=== PATIENT | female | born 1945 | race Caucasian/White ===

== ENCOUNTER → 2017-05-18 | Outpatient (REF) | payer OTHER | LOC: M SFHCWAGY 11:18 | PROVIDERS: ATTEND Nurse Practitioner Women's Health | DX: Z12.31 Encounter for screening mammogram for malignant neoplasm of breast (principal); Z12.4 Encounter for screening for malignant neoplasm of cervix; R87.610 Atypical squamous cells of undetermined significance on cytologic smear of cervix (ASC-US); Z12.12 Encounter for screening for malignant neoplasm of rectum; Z78.0 Asymptomatic menopausal state; Z80.3 Family history of malignant neoplasm of breast; Z80.41 Family history of malignant neoplasm of ovary | CPT/HCPCS: 82270; 87624; G0101; G0123; G0202 ==

== ENCOUNTER → 2017-05-18 | Outpatient (CLI) | payer OTHER ==
--- NOTE | 2017-05-18 12:25 | REPMRS ---
Patient History The patient states she had a clinical breast exam in 05/24 Patient is postmenopausal. Family history of ovarian cancer in sister at age 50 or over, breast cancer in mother at age 75, and prostate cancer in brother at age 50 or over. Digital Woman Screen Mammo: May 18, 2017 - Exam #: [id number] Bilateral CC and MLO view(s) were taken. Technologist: Graciela Meraz, Technologist Prior study comparison: April 03, 2016, digital woman screen mammo performed at [facility]. April 01, 2015, digital woman screen mammo performed at [facility]. FINDINGS: There are scattered fibroglandular densities. There has been no change in the appearance of the mammogram from the prior studies. There is a mild amount of residual fibroglandular tissue which is fairly symmetric. There is no interval development of dominant mass, architectural distortion, or clustered microcalcification suggestive of malignancy. ASSESSMENT: BI-RADS/ACR category 1 mammogram. Negative. Recommendation Routine screening mammogram in 1 year (for women over age 40). This mammogram was interpreted with the aid of an FDA-approved computer-aided dectection system. Electronically Signed By: Cal Lovell MD 05/18/17 [id number]
== END ==
LOC: M WHC 10:25
PROVIDERS: ATTEND Nurse Practitioner Women's Health
DX: Z12.31 Encounter for screening mammogram for malignant neoplasm of breast (principal); Z78.0 Asymptomatic menopausal state; Z80.3 Family history of malignant neoplasm of breast; Z80.41 Family history of malignant neoplasm of ovary

== ENCOUNTER → 2018-08-20 | Outpatient (CLI) | payer MEDICARE, OTHER | LOC: M WHC 13:14 | DX: Z12.31 Encounter for screening mammogram for malignant neoplasm of breast (principal); Z78.0 Asymptomatic menopausal state; Z80.3 Family history of malignant neoplasm of breast; Z80.42 Family history of malignant neoplasm of prostate; Z80.41 Family history of malignant neoplasm of ovary | CPT/HCPCS: 77067 ==

== ENCOUNTER 2019-04-28 11:50 | Inpatient (IN) | payer MEDICARE ==
--- NOTE | 2019-04-21 15:59 | HPE ---
DATE OF ANTICIPATED ADMISSION: 04/28/2019 CHIEF COMPLAINT: Left knee pain and stiffness. HISTORY: Patient is a pleasant 73-year-old female with progressively worsening left knee pain and stiffness. She has failed to improve with conservative measures. She continues to have symptoms with weightbearing activities and activities of daily living. She consented for an elective left total knee arthroplasty with Dr. Dr. Alegria for her continued symptoms. Medical optimization pending with BARBARA Fernandez and was not available for review today. CURRENT MEDICATIONS: - fish oil 500 mg daily - daily multivitamin - citalopram 10 mg daily - metoprolol 50 mg daily ALLERGIES: CODEINE, IVP DYE. CHRONIC MEDICAL CONDITIONS: Anxiety, hypertension. PAST SURGICAL HISTORY: Tubal ligation, dilatation and curettage (D C), exploratory laparotomy. SOCIAL HISTORY: Patient is a former smoker and occasionally consumes alcohol. REVIEW OF SYSTEMS: Patient denies fevers, chills, nausea, vomiting, or diarrhea. She denies chest pain, shortness of breath, lightheadedness, dizziness or headaches. She denies abdominal pain or recent upper respiratory or urinary tract infection symptoms. She continues to have left knee pain with weightbearing activities and activities of daily living. PHYSICAL EXAMINATION: GENERAL: Well nourished, well developed female in no apparent distress. She is alert and oriented and cooperative. Mood and affect are appropriate. VITAL SIGNS: Blood pressure 132/60, respirations 14, heart rate 82, height 61 inches, weight 190.8 pounds, temperature 97 degrees. NECK: Supple without lymphadenopathy. HEART: Regular rate and rhythm. LUNGS: Clear to auscultation bilaterally. ABDOMEN: Soft, nontender to palpation. Bowel sounds are present. MUSCULOSKELETAL: Left knee exhibits no gross abnormalities. Her skin is intact. She does have tenderness to palpation along the medial joint line and posterior knee. Patient can extend knee fully and flex to about 95 degrees. Left lower extremity strength is 5 out of 5. No hip irritability elicited with range of motion testing. Patient's calf was soft, nontender to palpation with no palpable cords noted. She is neurovascularly intact distally. LABORATORY DATA: Chest x-ray - no acute abnormalities. Left knee x-ray - notable for end-stage degenerative changes. Prothrombin time 10.4, INR 1.06. Complete blood count - WBC 6.1, RBC is decreased at 3.67, hemoglobin decreased at 11.2, hematocrit decreased at 33.9, erythrocyte sedimentation rate 14, platelets 188. Comprehensive metabolic profile - sodium 137, potassium 4.2, chloride 102, carbon dioxide 27.7, GAP 7.3, BUN 14, creatinine 0.95, GFR greater than 60, fasting glucose 97, calcium 8.6, total bilirubin 0.3, AST 16, ALT 21, alkaline phosphatase 59, total protein 6.5, albumin 3.9. IMPRESSION: Left knee degenerative arthritis with x-rays notable for end-stage degenerative changes. PLAN: Patient has consented for and elective left total knee arthroplasty with Dr. Dr. Alegria for continue symptoms. Medical optimization pending with RNP. OLAYINKA Fernandez
[~2019-04-28] VITALS: Ht 156.2 cm; Wt 87.1 kg
[2019-04-28] MEDS: OCUVITE 1 TAB PO SCH (09:00)
[~2019-04-28 11:50] MED LIST: ACETAMINOPHEN 500 MG TAB PO ONE; BRIM0.2S13 OD; CALC500T68 PO; CELE10TA PO; LR 1,000 ML IV ONE; METO1TAB7 PO; MULTCAP PO; NAPR250T4 PO; OCUVCAP2 PO; OMEG12003 PO; OYST1TAB PO; PROBCAP14 PO; TYLE650T35 PO; ceFAZolin SOD 2 GM in IV 1 EA IV ONE; hemp oil PO
[2019-04-28 13:01] LABS: BLOOD UREA NITROGEN 11 MG/DL (7-18); CALCIUM LEVEL 9.4 MG/DL (8.8-10.2); CARBON DIOXIDE LEVEL 26 MEQ/L (21-32); CHLORIDE LEVEL 109 MEQ/L (98-107); CREATININE FOR GFR 0.87 MG/DL (0.55-1.30); GLOMERULAR FILTRATION RATE > 60.0 (>39); GLUCOSE, FASTING 107 MG/DL (70-100); POTASSIUM SERUM 3.9 MEQ/L (3.5-5.1); SODIUM LEVEL 143 MEQ/L (136-145)
[2019-04-28] MEDS ORDERED: MIDAZOLAM INJ 2 MG/2 ML VIAL (J2250) As Ordered ONE ×2 (13:40→14:00)
[2019-04-28] MEDS ORDERED: fentaNYL 100 MCG/2 ML INJECTION (J3010) As Ordered ONE (13:40)
[2019-04-28] MEDS ORDERED: propofoL 200 MG/20 ML VIAL As Ordered ONE (13:49)
[2019-04-28] MEDS ORDERED: LIDOCAINE 2% INJ 100 MG/5 ML SDV (FOR ANES.) As Ordered ONE (13:52)
[2019-04-28] MEDS ORDERED: ONDANSETRON 4MG/2ML VIAL (J2405) As Ordered ONE (13:54)
[2019-04-28] MEDS ORDERED: dexameTHASONE 4 MG/ML 1ML VIAL (J1100) As Ordered ONE (13:54)
[2019-04-28] MEDS ORDERED: BUPIVACAINE HCL 0.25% 30 ML VIAL As Ordered ONE (13:55)
[2019-04-28] MEDS ORDERED: EPINEPHrine INJ 1 MG/ML 1ML VIAL As Ordered ONE (15:14)
[2019-04-28] MEDS ORDERED: TRANEXAMIC ACID 100 MG/ML 10ML VIAL As Ordered ONE (15:14)
[2019-04-28] MEDS ORDERED: BUPIVACAINE LIPOSOME/PF 1.3% 20ML VIAL (13.3MG/ML)(EXPAREL)(C9290 PER1MG) As Ordered ONE (15:14)
[2019-04-28] MEDS ORDERED: ceFAZolin 1GM INJ (J0690 PER 500MG) As Ordered ONE (15:14)
[2019-04-28] MEDS ORDERED: BUPIVACAINE HCL 0.25% 10 ML VIAL As Ordered ONE ×3 (15:14→15:39)
[2019-04-28] MEDS ORDERED: fentaNYL 100 MCG/2 ML INJECTION (J3010) IV PRN (17:45)
[2019-04-28] MEDS ORDERED: HYDROMORPHONE HCL 0.5 MG/ 0.5 ML SYRINGE (J1170 PER 1) IV PRN ×2 (17:45)
[2019-04-28] MEDS ORDERED: oxyCODONE 5MG TAB PO PRN (17:45)
[2019-04-28] MEDS ORDERED: METOCLOPRAMIDE INJ 10MG/2ML VIAL (J2765) IV PRN (17:45)
[2019-04-28] MEDS ORDERED: LR 1,000 ML IV SCH ×2 (17:45→18:00)
[2019-04-28] MEDS ORDERED: PROMETHAZINE INJ 25 MG/ML VIAL (J2550) IV PRN (17:45)
[2019-04-28 18:00] VITALS: BP 158/69
[2019-04-28] MEDS ORDERED: ACETAMINOPHEN TAB 650MG DOSE (2X325MG) PO PRN (18:00)
[2019-04-28] MEDS ORDERED: FLEET ENEMA PR PRN (18:00)
--- NOTE | 2019-04-28 18:06 | CR.PDOC ---
General Date of Consultation: Apr 28, 2019 Consultation REASON FOR CONSULTATION/CHIEF COMPLAINT: Who presented to [facility] for an elective orthopedic procedure Medical management HISTORY OF PRESENT ILLNESS: Patient is a 73-year-old female with a past medical history of hypertension and anxiety who presented to the [facility] for an elective orthopedic procedure. Patient received outpatient clearance from her primary care provider Rhea Magana. Patient received lab work, chest x-ray and EKG. . She did not require cardiac clearance. Hospitalist services consult for medical management. Patient was seen postoperatively. Patient denies chest pain, shortness of breath, palpitations, nausea, vomiting, abdominal pain, constipation, diarrhea, discomfort with urination, fevers or chills. Patient reports that her appetite is fair and has denied any significant change in her weight. ALLERGIES: Please see below. HOME MEDICATIONS: Please see below. 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 ASSESSMENT/PLAN: Left knee pain - s/p total left knee arthroplasty (POD#0) - Presented to [facility] for an elective orthopedic procedure - Patient has received outpatient medical clearance from her primary care provider - Pain control, anticoagulation, & physical therapy at the direction of ortho pedic surgery HTN - BP moderately elevated - c/w Metoprolol with holding parameters Anxiety - c/w Citalopram DVT prophylaxis - Anticoagulation as per orthopedic surgery Vital Signs/I&O Vital Signs Date Time Temp Pulse Resp B/P (MAP) Pulse Ox O2 Delivery O2 Flow Rate FiO2 04/28/19 17:55 97.2 62 16 159/73 (101) 98 04/28/19 15:20 3 Laboratory Data Labs 24H Laboratory Tests 2 04/28/19 12:21: Anion Gap 8, Glomerular Filtration Rate > 60.0, Blood Urea Nitrogen 11, Creatinine 0.87, Sodium Level 143, Potassium Level 3.9, Chloride Level 109H, Carbon Dioxide Level 26, Calcium Level 9.4 CBC/BMP Laboratory Tests 04/28/19 12:21 Calcium Level 9.4 Allergies Coded Allergies: Contrast Media (Unverified Allergy, Intermediate, hives, 04/15/19) codeine (Verified Adverse Reaction, Mild, GI upset, 04/15/19) Home Medications Scheduled Acetaminophen (Tylenol Arthritis) 650 Mg Tablet.er, 1,300 MG PO BID, (Reported) Brimonidine Tartrate (Brimonidine Tartrate) 0.2% 5ML Drops, 1 DROP OD BID, #10 (Reported) C,E,Zinc,Copper 24/Om3/Lut/Brandyn (Ocuvite Adult 50 Plus Softgel) 1 Each Capsule, 1 CAP PO DAILY, (Reported) Calcium Carbonate (Calcium) 500 Mg Tab.chew, 500 MG PO QAM, (Reported) Calcium Carbonate (Calcium) 500 Mg Tablet, 1,000 MG PO QHS, (Reported) Citalopram Hydrobromide (Celexa) 10 Mg Tablet, 10 MG PO QHS, (Reported) Lactobacillus Acidophilus (Probiotic) 1 Each Capsule, 1 CAP PO DAILY, (Reported) Metoprolol Succinate (Metoprolol Succinate) 50 Mg Tab.er.24h, 50 MG PO QHS, (Reported) Multivitamin (Multivitamins) 1 Each Capsule, 2 CAP PO QHS, (Reported) Naproxen (Naproxen) 250 Mg Tablet, 250 MG PO BID, (Reported) [place]-3/Dha/Epa/Fish Oil (Fish Oil 1,200 mg Softgel) 1 Each Capsule.dr, 1 CAP PO DAILY, (Reported) [hemp oil] , PO DAILY, (Reported) NUVIA LEE MD Apr 28, 2019 18:06
[2019-04-28 18:30] VITALS: BP 153/69
[2019-04-28 20:13] VITALS: BP 117/66
[2019-04-28] MEDS ORDERED: LIDOCAINE 1% MDV 20ML VIAL ONE (20:22)
[2019-04-28] MEDS ORDERED: CitaloPRAM (CeleXA) 10 MG TABLET PO SCH (21:00)
[2019-04-28] MEDS ORDERED: METOPROLOL SUCC (TopROL XL) 50MG **XL** TAB PO SCH (21:00)
[2019-04-28] MEDS ORDERED: OYSTER SHELL CALCIUM 500 MG TAB PO SCH (21:00)
[2019-04-28 21:08] VITALS: BP 117/66
[2019-04-28] MEDS: BRIMONIDINE 0.15% OPHTH SOLN 5 ML OU SCH (21:08)
[2019-04-28 22:09] VITALS: BP 116/66
[2019-04-28] MEDS ORDERED: PERCOCET 5MG/325MG TAB PO PRN (22:30)
[2019-04-28] MEDS ORDERED: ONDANSETRON 4 MG TAB (S0181) PO PRN (22:30)
[2019-04-28] MEDS: ceFAZolin SOD 2 GM in IV 1 EA IV SCH (22:39)
[2019-04-28] MEDS: PERCOCET 5MG/325MG TAB PO PRN (22:40)
[2019-04-28 23:57] VITALS: BP 126/69
[2019-04-29 02:22] VITALS: BP 127/69
[2019-04-29] MEDS: PERCOCET 5MG/325MG TAB PO PRN ×2 (04:53→09:37)
[2019-04-29] MEDS: ceFAZolin SOD 2 GM in IV 1 EA IV SCH (05:24)
[2019-04-29 06:07] VITALS: BP 93/59
[2019-04-29 06:08] LABS: HEMATOCRIT 31.2 % (36.0-47.0); HEMOGLOBIN 10.3 g/dl (12.0-15.5); MEAN CORPUSCULAR HEMOGLOBIN 30.8 pg (27.0-33.0); MEAN CORPUSCULAR VOLUME 93.4 fl (80.0-96.0); PLATELET COUNT, AUTOMATED 171 10^3/uL (150-450); RED BLOOD COUNT 3.34 10^6/uL (4.00-5.40); WHITE BLOOD COUNT 11.5 10^3/uL (4.0-10.0)
[2019-04-29 06:26] LABS: BLOOD UREA NITROGEN 14 MG/DL (7-18); CALCIUM LEVEL 8.8 MG/DL (8.8-10.2); CARBON DIOXIDE LEVEL 26 MEQ/L (21-32); CHLORIDE LEVEL 106 MEQ/L (98-107); CREATININE FOR GFR 0.87 MG/DL (0.55-1.30); GLOMERULAR FILTRATION RATE > 60.0 (>39); GLUCOSE, FASTING 176 MG/DL (70-100); POTASSIUM SERUM 3.9 MEQ/L (3.5-5.1); SODIUM LEVEL 139 MEQ/L (136-145)
[2019-04-29] MEDS ORDERED: PERC5TAB12 PO ×2 (07:45→07:49)
[2019-04-29] MEDS ORDERED: XARE10TA PO (07:45)
[2019-04-29] MEDS ORDERED: LACTOBACILLUS ACIDOPHILUS CAP (BACID) PO SCH (09:00)
[2019-04-29] MEDS ORDERED: MOM 30ML SUSPENSION UDC PO SCH (09:00)
[2019-04-29] MEDS ORDERED: MULTIVITAMINS/MINERALS THERAP 1 TAB PO SCH (09:00)
[2019-04-29] MEDS ORDERED: MIRALAX *UNIT DOSE* 17GM PACKET PO SCH (09:00)
--- NOTE | 2019-04-29 09:03 | REP ---
REASON: Status post TKR. The femoral and tibial components of the TKR are well-sweated and well-approximated. The alignment is near anatomical. There is expected postoperative soft tissue swelling. There is an anterior skin staple line in place. IMPRESSION: Status post TKR. Electronically Signed by Oscar Wray DO 04/29/2019 10:03 A
[2019-04-29] MEDS: OCUVITE 1 TAB PO SCH (09:36)
[2019-04-29] MEDS: BRIMONIDINE 0.15% OPHTH SOLN 5 ML OU SCH (09:37)
--- NOTE | 2019-04-29 10:51 | IPNPDOC ---
Date Seen The patient was seen on 04/29/19. Progress Note SUBJECTIVE: c/o 5/10 pain at left knee. able to ambulate. no c/o sob, cp, pressure, dizziness. afebrile no chills no n/v/abd pain. tolerating her diet. passed physical therapy ok to dc home per ortho. OBJECTIVE: PHYSICAL EXAMINATION: - Vitals: pls ee below - General: Lying in bed, No acute distress, Speaking in full sentences, AAOx3 - HEENT: NC, AT, PERRLA, EOMI - CVS: RRR, +S1S2 - Lungs: Fair air entry bilaterally, No appreciable wheezing / rales / rhonchi - Abdomen: Soft, Non-distended, Non-tender - Extremities: post op left knee. - Neuro: No focal motor or sensory deficit - Skin: No visible rashes LABORATORY DATA: Please see below. ASSESSMENT/PLAN: Patient is a 73-year-old female with a past medical history of hypertension and anxiety who presented to the [facility] for an elective orthopedic procedure. Patient received outpatient clearance from her primary care provider Rhea Magana. Patient received lab work, chest x-ray and EKG. . She did not require cardiac clearance. Hospitalist services consult for medical management. Patient was seen postoperatively. Patient denies chest pain, shortness of breath, palpitations, nausea, vomiting, abdominal pain, constipation, diarrhea, discomfort with urination, fevers or chills. Patient reports that her appetite is fair and has denied any significant change in her weight. total left knee arthroplasty due to DJD - Presented to [facility] for an elective orthopedic procedure - Patient has received outpatient medical clearance from her primary care provider - Pain control, anticoagulation, & physical therapy at the direction of orthopedic surgery HTN - BP moderately elevated - c/w Metoprolol with holding parameters Anxiety - c/w Citalopram DVT prophylaxis - Anticoagulation as per orthopedic surgery disposition: dc home per primary team. VS, I&O, 24H, Fishbone Vital Signs/I&O Vital Signs Date Time Temp Pulse Resp B/P (MAP) Pulse Ox O2 Delivery O2 Flow Rate FiO2 04/29/19 09:37 18 04/29/19 06:07 97.1 68 93/59 (70) 98 04/28/19 15:20 3 I&O- Last 24 Hours up to 6 AM 04/29/19 06:00 Intake Total 2350 ml Output Total 400 ml Balance 1950 ml Laboratory Data 24H LABS Laboratory Tests 2 04/28/19 12:21: Anion Gap 8, Glomerular Filtration Rate > 60.0, Blood Urea Nitrogen 11, Creatinine 0.87, Sodium Level 143, Potassium Level 3.9, Chloride Level 109H, Carbon Dioxide Level 26, Calcium Level 9.4 04/29/19 05:20: Anion Gap 7L, Glomerular Filtration Rate > 60.0, Blood Urea Nitrogen 14, Creatinine 0.87, Sodium Level 139, Potassium Level 3.9, Chloride Level 106, Carbon Dioxide Level 26, Calcium Level 8.8, Nucleated Red Blood Cells % (auto) 0.0 CBC/BMP Laboratory Tests 04/28/19 12:21 Calcium Level 9.4 04/29/19 05:20 Calcium Level 8.8, Red Blood Count 3.34 L, Mean Corpuscular Volume 93.4, Mean Corpuscular Hemoglobin 30.8, Mean Corpuscular Hemoglobin Concent 33.0, Red Cell Distribution Width 12.2 CLIVE KHAN MD Apr 29, 2019 10:23
[2019-04-29] MEDS ORDERED: RIVAROXABAN 10 MG TAB (XARELTO) PO SCH (18:00)
--- NOTE | 2019-04-29 20:47 | RO ---
DATE OF PROCEDURE: 04/28/2019 PREPROCEDURE DIAGNOSIS: Left knee degenerative arthritis. POSTPROCEDURE DIAGNOSIS: Left knee degenerative arthritis. PROCEDURE: Left total knee arthroplasty using a size 5 cruciate-sacrificing femoral component with a size 4 tibial tray and an 8 mm rotating platform polyethylene insert and a 35 mm polyethylene button. The prosthesis was made by [employer]. It was an Attune knee. SURGEON: Dr. Wilian Alegria SHAREPOINT SPECIALIST: Ms. Barb Fuller ANESTHESIA: Left femoral nerve block with spinal. COMPLICATIONS: None. SPECIMENS: Joint surface. DESCRIPTION OF PROCEDURE: Antibiotics were given intravenously preoperatively and successful left femoral nerve block and then spinal anesthetic was induced. Tourniquet was placed on the left upper thigh and not inflated. The left lower extremity was carefully prepped and draped in the usual sterile fashion, leg elevated, tourniquet inflated after appropriate time out. A longitudinal incision was made for a medial parapatellar approach to the knee. Subperiosteal dissection was performed around the proximal, medial, and lateral tibial plateaus, patella was everted and the knee was flexed. Drill placed down the center of the femoral canal. Intramedullary stanislav inserted with the distal femoral cutting jig set at 9 mm resection level, 5 degree valgus cut for a left knee. Block was pinned into position. The distal femoral cut performed. The AP sizing jig was not able to be fit on the distal femur, thus I proceeded with a tibial cut. Extramedullary stanislav was utilized to estimate being parallel to the mechanical axis, referencing off the medial tibial condyle at 4 mm resection level. The block was pinned into position, appropriate slope applied and estimated. The block was pinned into position, then secondary check with the extramedullary stanislav confirmed we appeared to be parallel to the mechanical axis, thus a proximal tibial osteotomy was performed. At this point then, we reapplied the AP sizing jig, measured for a size 5, it was pinned in position with 3 degrees of external rotation. Then, the 4-in-1 block applied and the anterior, posterior chamfer cuts performed. We then placed the lamina food supervisor laterally and performed a completion medial meniscectomy and debridement of posteromedial osteophytes. We then placed the lamina food supervisor laterally and performed a completion lateral meniscectomy and debridement of posterolateral osteophytes. Spacer blocks were then applied. It was evident that she was quite tight medially. I did make sure that I did a full posteromedial release. Even with that, the posterior cruciate ligament (PCL) was quite tight, and I felt it best in this significantly varus knee to help with soft tissue balancing by performing a cruciate-sacrificing knee replacement. Thus, the osteotomy jig was applied for the notch on the femur. We pinned it in position and the notch osteotomy performed. We then placed the spacer blocks, and it was between a size 8 and 10; the 10 was a bit snug but 8 had a good symmetry to varus/valgus stress testing, both in flexion and in extension, and she had full extension. Thus, I felt that was likely the best polyethylene insert to use. At this point, however, we then exposed the proximal tibia, sized for a #4 tibial tray, reamed and broached and positioned, the trial femoral component was applied, and then we trialed the 8 and the 10 mm polyethylene insert and the 8 fit best. With the knee in full extension, we everted the patella and performed a patellar osteotomy, sized for a 35 patellar component, which was then placed and patellofemoral tracking was anatomic. We drilled the lug holes for the femur, then removed all the trial components, placed Exparel in the subperiosteal tissues around the distal femur and the proximal tibia. Then, Ms. Barb Fuller, mixed the cement on the back table as I prepared the bony surfaces for cementing with a copious amount of pulsatile lavage irrigant solution. Barbnata Fuller was also critical to the success of this difficult surgery by helping to manipulate the knee, helped to close the wound, helped to prepare the patient, helped to mix the cement, and helped with appropriate soft tissue retraction, helped to manipulate the knee such that I could perform the operation smoothly, efficiently, and safely. Once all the bony surfaces were thoroughly dried, we cemented the tibial tray, removed the excess cement, and then we cemented the femoral component, removed the excess cement, then placed the polyethylene and brought the knee into extension, everted the patella and cemented the patellar button, held it with a clamp with the knee in full extension, then removed all excess cement. We copiously pulsatile lavage irrigated out the knee joint as we were waiting for the cement to harden, then placed tranexamic acid in the knee and then began closing the arthrotomy with two #1 PDS sutures at the apex, one in the medial parapatellar area, then we closed the capsule with a double-arm #1 running Stratafix. I let the tourniquet down at this point, irrigating between layers, closed the deep subdermal tissues with interrupted #2-0 PDS sutures, skin was closed with isacc, covered by an Optifoam, dry sterile bulky dressing. The patient was then transferred to the recovery room in stable condition. There were no intraoperative complications.
--- NOTE | 2019-05-06 14:34 | DSES ---
DATE OF ADMISSION: 04/28/2019 DATE OF DISCHARGE: 04/29/2019 ADMISSION DIAGNOSIS: Osteoarthritis left knee. OTHER DIAGNOSES: Anxiety, hypertension. DISCHARGE DIAGNOSIS: Osteoarthritis left knee, status post total left knee arthroplasty. OPERATION PERFORMED: Left total knee arthroplasty. HISTORY: This is a 73-year-old female patient with progressively worsening left knee pain and stiffness who failed to improve with conservative management and was admitted for elective knee replacement on the left side. HOSPITAL COURSE: The patient was admitted on the day of surgery and underwent a total knee arthroplasty on the left, which was uneventful. She did well in the postoperative period and her hospital course was without complications. She was up with physical therapy per their protocol and pain was controlled. On the day of discharge, she was doing well, weightbearing as tolerated on the left lower extremity. She will use LO stockings for 30 days postoperatively and follow deep vein thrombosis (DVT) prophylaxis per protocol. She will followup in our office in 10-14 days for surgical followup. She will resume her preoperative medications, as well as oral pain medication for pain control. She was given instructions to include but not limited to wound monitoring and activity limitations. Please refer to the medical record for further details.
== END 2019-04-29 12:45 | disposition home or self-care (01) | DRG 470 ==
LOC: M OR 11:50 → M MS5PR 18:05
PROVIDERS: ADMIT Orthopaedic Surgery; ATTEND Orthopaedic Surgery
PROC: 0SRD069 Replacement of Left Knee Joint with Oxidized Zirconium on Polyethylene Synthetic Substitute, Cemented, Open Approach (ICD-10-PCS; principal; 2019-04-28 15:15)
DX: M17.12 Unilateral primary osteoarthritis, left knee (principal); F41.9 Anxiety disorder, unspecified; I10 Essential (primary) hypertension; Z88.5 Allergy status to narcotic agent; Z91.041 Radiographic dye allergy status; Z87.891 Personal history of nicotine dependence; Z79.899 Other long term (current) drug therapy

== ENCOUNTER → 2019-11-29 | Outpatient (CLI) | payer MEDICARE ==
[~2019-11-29] MED LIST changes: -ACETAMINOPHEN 500 MG TAB PO ONE; -LR 1,000 ML IV ONE; +PERC5TAB12 PO; +XARE10TA PO; -ceFAZolin SOD 2 GM in IV 1 EA IV ONE
--- NOTE | 2019-11-29 13:17 | REP ---
PA and lateral chest: Comparison is 09/28/2014. The lung dodson are clear. The cardiac size is normal. The yokasta, mediastinum, and skeletal structures are unremarkable. Impression: Negative PA and lateral chest. There is no interval change. The Electronically Signed by Cal Oreilly MD 11/29/2019 01:08 P
== END ==
LOC: M LRY 12:42
PROVIDERS: ATTEND Nurse Practitioner Family
DX: R05 Cough (principal)
CPT/HCPCS: 71046; 87804; 94640; G0463

== ENCOUNTER → 2020-02-13 | Outpatient (REF) | payer MEDICARE | LOC: M SFHCWAGY 18:06 | PROVIDERS: ATTEND Nurse Practitioner Women's Health | DX: Z12.4 Encounter for screening for malignant neoplasm of cervix (principal) ==

== ENCOUNTER → 2020-02-13 | Outpatient (CLI) | payer MEDICARE ==
[~2020-02-13] MED LIST changes: +ACET650T61 PO; +CITA10TA5 PO; +ECOT81TA5 PO; -TYLE650T35 PO
--- NOTE | 2020-02-16 07:32 | REPMRS ---
Patient History The patient states she had a clinical breast exam in February 2020. Family history of breast cancer at age 75 in mother, prostate cancer at age 50 or over in brother, ovarian cancer at age 50 or over in sister. No Hormone Replacement Therapy Digital Woman Screen Mammo: February 13, 2020 - Exam #: [id number] Bilateral CC and MLO view(s) were taken. Technologist: Katelynn Wolff Technologist Prior study comparison: August 20, 2018, bilateral digital woman screen mammo performed at [facility]. May 18, 2017, digital woman screen mammo performed at [facility]. April 03, 2016, digital woman screen mammo performed at [facility]. FINDINGS: There are scattered fibroglandular densities. The Volpara volumetric breast density category is:B. There has been no change in the appearance of the mammogram from the prior studies. There is a mild amount of scattered fibroglandular density which is fairly symmetric. There is no interval development of dominant mass, architectural distortion, or grouped microcalcification suggestive of malignancy. 3-D tomosynthesis shows no additional findings. Assessment: BI-RADS/ACR category 1 mammogram. Negative Mammogram. Recommendation Routine screening mammogram of both breasts in 1 year (for women over age 40). This patient's Lifetime Breast Cancer Risk is estimated at 4.2 %. This mammogram was interpreted with the aid of an FDA-approved computer-aided dectection system. Electronically Signed By: Placido Moore MD 02/13/20 [id number]
== END ==
LOC: M WHC 11:33
PROVIDERS: ATTEND Nurse Practitioner Women's Health
DX: Z01.419 Encounter for gynecological examination (general) (routine) without abnormal findings (principal); Z12.31 Encounter for screening mammogram for malignant neoplasm of breast; Z80.3 Family history of malignant neoplasm of breast; Z80.42 Family history of malignant neoplasm of prostate; Z80.41 Family history of malignant neoplasm of ovary
CPT/HCPCS: 77063; 77067; G0101; G0123

== ENCOUNTER → 2020-11-04 | Outpatient (CLI) | payer MEDICARE ==
[~2020-11-04] MED LIST changes: -ECOT81TA5 PO
== END ==
LOC: M LABSMTC 09:54
PROVIDERS: ATTEND Anesthesiology
DX: Z01.812 Encounter for preprocedural laboratory examination (principal); Z20.828 Contact with and (suspected) exposure to other viral communicable diseases

== ENCOUNTER 2020-11-08 10:00 | Inpatient (IN) | payer MEDICARE ==
--- NOTE | 2020-11-05 11:02 | HPE ---
HISTORY AND PHYSICAL DATE OF ANTICIPATED ADMISSION: 11/08/2020 CHIEF COMPLAINT: Right knee pain and stiffness. HISTORY: This is a 74-year-old female patient with progressively worsening right knee pain and stiffness who failed to improve with conservative management. She was elected for surgery for continued symptoms. She has pain with weightbearing activities and activities of daily living. X-rays notable for end-stage degenerative changes of the right knee. She has been consented by Dr. Scott for a right total knee arthroplasty. Medical optimization. through her primary, Dr. Krishnamurthy. ALLERGIES: Codeine and IVP dye. CURRENT MEDICATIONS: 1. Aleve 220 mg. She knows to discontinue that five days prior to surgery. 2. Ocuvite twice per day. 3. Citalopram 10 mg one tablet once per day. 4. Metoprolol 50 mg one tablet once per day. PAST MEDICAL HISTORY: 1. Symptomatic osteoarthritis of the right knee. 2. Hypertension. 3. Anxiety. 4. Glaucoma. 5. Hearing loss. PAST SURGICAL HISTORY: 1. Appendectomy. 2. D&C. 3. Right eye surgery. 4. Tubal ligation. 5. Knee replacement on the left side. FAMILY HISTORY: Hypertension, diabetes, COPD, heart disease, stroke, and cancer. SOCIAL HISTORY: She is a former smoker. She uses alcohol occasionally. REVIEW OF SYSTEMS: Denies chest pain, shortness of breath, or cough. Denies difficulty breathing. Denies abdominal pain. Denies nausea or vomiting. Notes persistent pain in her right knee and pain with weightbearing activities and activities of daily living. Denies exposure to COVID-19. Denies recent URI or UTI symptoms. PHYSICAL EXAMINATION: Exam today reveals an alert female patient that ambulates with a limping gait favoring her right side. She uses a cane for ambulation. The neck is supple without adenopathy or JVD. The lungs are clear to auscultation without rales or wheeze. Heart is regular rate and rhythm. Abdomen: Bowel sounds are present. Exam of the right knee reveals skin to be intact. No erythema, edema, or ecchymosis. Calf is soft and nontender to palpation. No irritability with hip range of motion. The knee is stable to varus and valgus stress. Irritability at the extremes of range of motion. No pain with passive range of motion of the great toe. She can sensate light touch. Height 61 inches, weight 190 pounds, temperature 96.8, blood pressure 128/82, pulse 67, respirations 14. LABORATORY DATA: WBC count 7.6, RBC count 4, hemoglobin 12.2, hematocrit 36.4. ESR 14. Sodium 140, potassium 4.0, BUN 13, creatinine 0.9, glucose 105. Chest x-ray: No acute cardiopulmonary process noted. EKG not present for review. IMPRESSION: Symptomatic osteoarthritis of the right knee. PLAN: We reviewed her pre and postoperative instructions. We went over the importance of being n.p.o. after midnight and no NSAIDs to include aspirin five days prior to surgery. We reviewed what aspirin is and what NSAIDs are. She understands to be on time. We went over the policy right now. There is no visitation policy at the [facility]. She understands to only take the medications as directed by her primary or anesthesia and if she is directed to take medications to only take it with a sip of water. She understands to be on time for appointment. She needs to call Sunday to find out what time she needs to be there on Sunday. All of her questions were answered. cc: Primary Care Physician
[2020-11-08] VITALS (7 sets, daily range): BP systolic 103–159; BP diastolic 63–90
[~2020-11-08] VITALS: Ht 154.9 cm; Wt 86.5 kg
[~2020-11-08 10:00] MED LIST changes: +ACETAMINOPHEN 500 MG TAB PO ONE; +LIDOCAINE 2% 100MG/5ML SDV (FOR ANES.) As Ordered ONE; +LR 1,000 ML IV ONE; +MIDAZOLAM INJ 2MG/2ML VIAL (J2250 PER 1MG) As Ordered ONE; +MIDAZOLAM INJ 2MG/2ML VIAL (J2250 PER 1MG) IV PRN; +ONDANSETRON 4MG/2ML VIAL As Ordered ONE; +ceFAZolin SOD 2 GM in IV 1 EA IV ONE; +fentaNYL 100 MCG/2 ML INJECTION (J3010) As Ordered ONE; +propofoL 200 MG/20 ML VIAL As Ordered ONE
--- OUTSIDE RECORDS SUMMARY | 2020-11-08 10:35 | CCD ---
Author Author [facility] Organization [facility] Address Unknown Phone Unavailable Care Team Providers Care Forge Heater Name Role Phone Petra Fontaine Unavailable Unavailable Petra Fontaine Unavailable Unavailable Petra Fontaine Unavailable Unavailable Petra Fontaine Unavailable Unavailable Petra Fontaine Unavailable Unavailable Petra Fontaine Unavailable Unavailable Petra Fontaine Unavailable Unavailable Petra Fontaine Unavailable Unavailable Petra Fontaine Unavailable Unavailable Petra Fontaine Unavailable Unavailable Petra Fontaine Unavailable Unavailable Petra Fontaine Unavailable Unavailable Petra Fontaine Unavailable Unavailable Fontaine, M Barratt PA Unavailable Unavailable Fontaine, M Barratt PA Unavailable Unavailable Fontaine, M Barratt PA Unavailable Unavailable Fontaine, M Barratt PA Unavailable Unavailable Fontaine, M Barratt PA Unavailable Unavailable Fontaine, M Barratt PA Unavailable Unavailable Fontaine, M Barratt PA Unavailable Unavailable Fontaine, M Barratt PA Unavailable Unavailable Fontaine, M Barratt PA Unavailable Unavailable Fontaine, M Barratt PA Unavailable Unavailable Fontaine, M Barratt PA Unavailable Unavailable Fontaine, M Barratt PA Unavailable Unavailable Fontaine, M Barratt PA Unavailable Unavailable Zhen, M Barratt PA Unavailable Unavailable Gladys Scott MD Unavailable Unavailable Gladys Scott MD Unavailable Unavailable Gladys Scott MD Unavailable Unavailable Gladys Scott MD Unavailable Unavailable Gladys Scott MD Unavailable Unavailable Gladys Scott MD Unavailable Unavailable Gladys Scott MD Unavailable Unavailable Glayds Scott MD Unavailable Unavailable Gladys Scott MD Unavailable Unavailable Gladys Scott MD Unavailable Unavailable Gladys Scott MD Unavailable Unavailable Gladys Scott MD Unavailable Unavailable Gladys Scott MD Unavailable Unavailable Gladys Scott MD Unavailable Unavailable Gladys Scott MD Unavailable Unavailable Gladys Scott MD Unavailable Unavailable Gladys Scott MD Unavailable Unavailable Gladys Scott MD Unavailable Unavailable Gladys Scott MD Unavailable Unavailable Gladys Scott MD Unavailable Unavailable Gladys Scott MD Unavailable Unavailable Gladys Scott MD Unavailable Unavailable Gladys Scott MD Unavailable Unavailable Gladys Scott MD Unavailable Unavailable Gladys Scott MD Unavailable Unavailable Gladys Scott MD Unavailable Unavailable Gladys Scott MD Unavailable Unavailable Gladys Scott MD Unavailable Unavailable Gladys Scott MD Unavailable Unavailable Gladys Scott MD Unavailable Unavailable Gladys Scott MD Unavailable Unavailable Gladys Scott MD Unavailable Unavailable Gladys Scott MD Unavailable Unavailable Gladys Scott MD Unavailable Unavailable Gladys Scott MD Unavailable Unavailable Gladys Scott MD Unavailable Unavailable Gladys Scott MD Unavailable Unavailable Gladys Scott MD Unavailable Unavailable Vaneenenaam, Gladys Chambers MD Unavailable Unavailable Vaneenenaam, Gladys Chambers MD Unavailable Unavailable Vaneenenaam, Gladys Chambers MD Unavailable Unavailable Vaneenenaam, Gladys Chambers MD Unavailable Unavailable Hadian, Lex Unavailable Unavailable Hadian, Lex Unavailable Unavailable Hadian, Lex Unavailable Unavailable Hadian, Lex Unavailable Unavailable Hadian, Lex Unavailable Unavailable Hadian, Lex Unavailable Unavailable Hadian, Lex Unavailable Unavailable Hadian, Lex Unavailable Unavailable Hadian, Lex Unavailable Unavailable Hadian, Lex Unavailable Unavailable Hadian, Lex Unavailable Unavailable Hadian, Lex Unavailable Unavailable Hadian, Lex Unavailable Unavailable Hadian, Lex Unavailable Unavailable Hadian, Lex Unavailable Unavailable Hadian, Lex Unavailable Unavailable Hadian, Lex Unavailable Unavailable Hadian, Lex Unavailable Unavailable Hadian, Lex Unavailable Unavailable Hadian, Lex Unavailable Unavailable Hadian, Lex Unavailable Unavailable Hadian, Lex Unavailable Unavailable Hadian, Lex Unavailable Unavailable Hadian, Lex Unavailable Unavailable Hadian, Lex Unavailable Unavailable Hadian, Lex Unavailable Unavailable Hadian, Lex Unavailable Unavailable Hadian, Lex Unavailable Unavailable Hadian, Lex Unavailable Unavailable Hadian, Lex Unavailable Unavailable Hadian, Lex Unavailable Unavailable Hadian, Lex Unavailable Unavailable Hadian, Lex Unavailable Unavailable Re-disclosure Warning The records that you are about to access may contain information from federally-assisted alcohol or drug abuse programs. If such information is present, then the following federally mandated warning applies: This information has been disclosed to you from records protected by federal confidentiality rules (42 CFR part 2). The federal rules prohibit you from making any further disclosure of this information unless further disclosure is expressly permitted by the written consent of the person to whom it pertains or as otherwise permitted by 42 CFR part 2. A general authorization for the release of medical or other information is NOT sufficient for this purpose. The Federal rules restrict any use of the information to criminally investigate or prosecute any alcohol or drug abuse patient.The records that you are about to access may contain highly sensitive health information, the redisclosure of which is protected by Article 27-F of the [facility] Public Health law. If you continue you may have access to information: Regarding HIV / AIDS; Provided by facilities licensed or operated by the [facility] Office of Mental Health; or Provided by the [facility] Office for People With Developmental Disabilities. If such information is present, then the following [facility] mandated warning applies: This information has been disclosed to you from confidential records which are protected by state law. State law prohibits you from making any further disclosure of this information without the specific written consent of the person to whom it pertains, or as otherwise permitted by law. Any unauthorized further disclosure in violation of state law may result in a fine or assisted sentence or both. A general authorization for the release of medical or other information is NOT sufficient authorization for further disc losure. Allergies and Adverse Reactions Type Description Substance Reaction Status Data Source(s ) ivp dye ivp dye ivp dye stomach pain Active eCW1 ([facility]) Codeine Sulfate Codeine Sulfate Codeine Sulfate stomache spasms Acti ve eCW1 ([facility]) Combigan Combigan Brimonidine tartrate 2 MG/ML / Timolol 5 MG/ML Ophthalmic Solution [Combigan] Angioedema Active eCW1 ([facility]) ivp dye ivp dye ivp dye stomach pain Active eCW1 ([facility]) Codeine Sulfate Codeine Sulfate Codeine Sulfate stomache spasms Acti ve eCW1 ([facility]) Family History Family Member Name Family Member Gender Family Member Status Date o f Status Description Data Source(s) Unknown Female Problem MEDENT ([facility]) Unknown Female Problem MEDENT ([facility]) Encounters Encounter Providers Location Date Indications Data Source(s ) Outpatient Attender: Gladys Scott MD [facility] 11/05/2020 04:12:00 PM EST - 11/05/2020 04:13:00 PM EST RIGHT KNEE OSTEOARTHRITIS M1711 [facility] RIGHT KNEE OSTEOARTHRITIS M1711 Patient discharged. Outpatient Attender: Gladys Scott MD [facility] 11/03/2020 11:41:00 AM EST - 11/03/2020 11:42:00 AM EST M1711 [facility] M1711 Patient discharged. Outpatient Attender: Lex Krishnamurthy [facility]PS[facility] 021 11:11:00 AM EST - 11/03/2020 11:12:00 AM EST [facility] Patient discharged. Outpatient Attender: Lex Krishnamurthy ED-[facility] 0 10:36:00 AM EDT - 07/08/2020 10:37:00 AM EDT I10 [facility] I10 Patient discharged. Outpatient Attender: Lex Krishnamurthy [facility]PS[facility]ORT-CPSGNIMD 020 09:43:00 AM EDT - 07/08/2020 09:44:00 AM EDT [facility] Patient discharged. Outpatient Attender: Gladys Scott MD Physical Therap y 06/22/2020 10:45:00 AM EDT MEDENT ([facility]) Outpatient Attender: Alex WHITEHEAD Physical Therapy 11:00:00 AM EDT MEDENT ([facility]) [facility] [address] [place] [address] 02/13/2020 12:00:00 AM EDT eCW1 ([facility]) [facility] [address] [place] [address] 12/26/2019 12:00:00 AM EDT eCW1 ([facility]) Outpatient 2019 03:09:00 PM EST [facility] Radiology Imaging [facility] [address] [place] [address] 11/29/2019 12:00:00 AM EST eCW1 ([facility]) Medications Medication Brand Name Start Date Product Form Dose Route Admi nistrative Instructions Pharmacy Instructions Status Indications Reaction Description Data Source(s) 10 mg 08/02/2020 12:00:00 AM EDT tablet 90 TAKE ONE TABLET BY MOUTH EVERY DAY TAKE ONE TABLET BY MOUTH EVERY DAY SOLD: 08/10/2020 [facility] 50 mg 07/12/2020 12:00:00 AM EDT tablet 90 TAKE ONE TABLET BY MOUTH EVERY DAY WITH FOOD TAKE ONE TABLET BY MOUTH EVERY DAY WITH FOOD SOLD: 07/13/2020 [facility] 50 mg 07/12/2020 12:00:00 AM EDT tablet 90 TAKE ONE TABLET BY MOUTH EVERY DAY WITH FOOD TAKE ONE TABLET BY MOUTH EVERY DAY WITH FOOD SOLD: 10/10/2020 [facility] Albuterol Sulfate HFA 108 (90 Base) MCG/ACT Albuterol Sulfate HFA 108 (90 Base) MCG/ACT 11/29/2019 12:00:00 AM EST suspended 2 puffs as needed eCW1 ([facility]) Flonase 50 MCG/ACT Flonase 50 MCG/ACT 11/29/2019 12:00:00 AM EST suspended 1 spray in each nostril eCW1 ([facility]) Sudafed 30 MG Sudafed 30 MG 11/29/2019 12:00:00 AM EST active 1 tablet as needed eCW1 ([facility]) Prednisone 20 MG Oral Tablet PredniSONE 20 MG PredniSONE 20 MG 11/29/2019 12:00:00 AM EST active 1 tablet eCW1 ([facility]) Flonase 50 MCG/ACT Flonase 50 MCG/ACT 11/29/2019 12:00:00 AM EST active 1 spray in each nostril eCW1 ([facility]) 12 HR dextromethorphan polistirex 6 MG/M L Extended Release Suspension [Delsym] Delsym 30 MG/5ML Delsym 30 MG/5ML 11/29/2019 12:00:00 AM EST suspended 10 ml as needed eCW1 ([facility]) Sudafed 30 MG Sudafed 30 MG 11/29/2019 12:00:00 AM EST suspended 1 tablet as needed eCW1 ([facility]) 12 HR dextromethorphan polistirex 6 MG/M L Extended Release Suspension [Delsym] Delsym 30 MG/5ML Delsym 30 MG/5ML 11/29/2019 12:00:00 AM EST active 10 ml as needed eCW1 ([facility]) Prednisone 20 MG Oral Tablet PredniSONE 20 MG PredniSONE 20 MG 11/29/2019 12:00:00 AM EST suspended 1 tab let eCW1 ([facility]) Albuterol Sulfate HFA 108 (90 Base) MCG/ACT Albuterol Sulfate HFA 108 (90 Base) MCG/ACT 11/29/2019 12:00:00 AM EST active 2 puffs as needed eCW1 ([facility]) Insurance Providers Payer name Policy type / Coverage type Policy ID Covered democrat ID Covered democrat's relationship to lau Policy Lau Plan Information MEDICARE [id number] SP [id number] AARP HEALTH CARE OPTIONS [id number] SP [id number] AARP HEALTH CARE OPTIONS [id number] S [id number] MEDICARE [id number] S [id number] [id number] MEDICARE [id number] S [id number] AARP HEALTH CARE OPTIONS [id number] S [id number] MEDICARE [id number] S [id number] WELLCARE [id number] SP [id number] WELLCARE O [id number] S [id number] MEDICARE [id number] S [id number] [id number] MEDICARE -RECURRING [id number] 18 [id number] AARP HEALTH CARE OPTIONS -RECURRING [id number] 18 [id number] HUMANA GOLD PLUS -RECURRING [id number] AARP HEALTH CARE OPTIONS [id number] SP [id number] TODAYS OPTION-CLINIC [id number] 18 [id number] BS [place] Medig[place] Part B [id number] Self [id number] [place] Primary [id number] Self [id number] [place] Options Medigap Part B [id number] Self [id number] [place] Medigap Part B [id number] Family Dependent [id number] AARP HEALTH CARE OPTIONS [id number] S [id number] TODAYS OPTIONS [id number] SP [id number] BS [place] Medigap Part B [id number] Self [id number] [place] Primary [id number] Self [id number] MEDICARE [id number] SP [id number] BS [place] Medigap Part B [id number] Self [id number] [place] Primary [id number] Self [id number] BS [place] Medigap Part B [id number] Self [id number] [place] Primary [id number] Self [id number] BS [place] Medigap Part B [id number] Self [id number] Medicare [place] Medicare Primary [id number] Self [id number] BS [place] Medigap Part B [id number] Self [id number] Medicare [place] Medicare Primary [id number] Self [id number] BS [place] Medigap Part B [id number] Self [id number] [place] Primary [id number] Self [id number] ANSI-Medicare Part B [id number] MEDICARE [id number] SP [id number] BS [place] Medigap Part B [id number] Self [id number] Aarp [employer] Options Medigap Part B [id number] Self [id number] Medicare [place] Medicare Primary [id number] Self [id number] Today's Options Commercial [id number] Self [id number] BS [place] Medigap Part B [id number] Self [id number] Aarp [employer] Options Medigap Part B [id number] Self [id number] [place] Primary [id number] Self [id number] BS [place] Medigap Part B [id number] Self [id number] A[employer] Options Medigap Part B [id number] Self [id number] [place] Medicare Primary [id number] Self [id number] BS [place] Medigap Part B [id number] Self [id number] A[employer] Options Medigap Part B [id number] Self [id number] Medicare [place] Medicare Primary [id number] Self [id number] BS [place] Medigap Part B [id number] Self [id number] [facility] Healthcare Options Medigap Part B [id number] Self [id number] Medicare [place] Medicare Primary [id number] Self [id number] BS [place] Medigap Part B [id number] Self [id number] Todays Options Commercial [id number] Self [id number] BS [place] Medigap Part B [id number] Self [id number] BS [place] Medigap Part B [id number] Self [id number] BS [place] Medigap Part B [id number] Self [id number] BS [place] Medigap Part B [id number] Self [id number] BS [place] Medigap Part B [id number] Self [id number] BS [place] Medigap Part B [id number] Self [id number] BS [place] Medigap Part B Self [place] Medigap Part B Family Dependent Todays Options Commercial Self TODAYS OPTIONS -O/P [id number] 18 [id number] TODAYS OPTIONS -CLINIC [id number] 18 [id number] [facility] -R [id number] 18 [id number] TODAYS OPTIONS O [id number] S [id number] TODAYS OPTI -RECURRING [id number] 18 [id number] [facility] -RECURRING [id number] 1 18 [id number] 1 TODAYS OPTIONS -RECURRING [id number] 18 [id number] MEDICARE ADVANTAGE -RECURRING [id number] 18 [id number] Problems, Conditions, and Diagnoses Code Display Name Description Problem Type Effective Dates Data Source(s) Z01.419 Gynecological examination normal Encount er for gynecological examination (general) (routine) without abnormal findings Problem 020 12:00:00 AM EDT eCW1 ([facility]) M17.11 Unilateral primary osteoarthritis, right knee UNILATERAL PRIMARY OSTEOARTHRITIS, RIGHT KNEE Diagnosis 11/05/2020 04:12:00 PM [facility] I10 Essential (primary) hypertension ESSENTIAL (PRIMARY) H YPERTENSION Diagnosis 07/08/2020 10:36:00 AM [facility] Surgeries/Procedures Procedure Description Date Indications Data Source(s) RADEX HAND MINIMUM 3 VIEWS [facility] RADIOLOGIC EXAM KNEE COMPLETE 4/MORE VIEWS 05/19/2020 12:00:00 AM [facility] ([facility]) RADIOLOGIC EXAM KNEE COMPLETE 4/MORE VIEWS 05/19/2020 [facility] Cervical or vaginal cancer screening; pelvic and clinical br east examination 02/13/2020 12:00:00 AM EDT [facility] ([facility]) Influenza A+B 11/29/2019 12:00:00 AM [place] [address] ([facility]) Albuterol, inhalation solution, fda-appr [place] final product, non-compounded, administered through dme, unit dose, 1 mg 11/29/2019 12:00:00 AM [place] [address] ([facility]) Ipratropium bromide, inhalation solution , fda-approved final product, non- compounded, administered through dme, unit dose form, per milligram 11/29/2019 12:00:00 AM [place] [address] ([facility]) NEB/MDI RX INITIAL 11/29/2019 12:00:00 AM [place] [address] ([facility]) Results ID Date Data Source [id number] 11/04/2020 09:45:00 AM EST [facility] Name Value Range Interpretation Code Description Data Xuan rce(s) Supporting Document(s) SARS coronavirus 2 RNA Not Detected [facility] [place] This lab was ordered by [facility] and reported by [facility]. ID Date Data Source [id number] 07/08/2020 11:49:00 AM [facility] Name Value Range Interpretation Code Description Data Xuan rce(s) Supporting Document(s) Sodium 138 mmol/L 136-145 Normal (applies to non-numeric resul ts) [facility] Potassium 3.5-5.1 Normal (applies to non-numeric resul ts) [facility] Chloride 102 mmol/L 98-107 Normal (applies to non-numeric resul ts) [facility] Carbon Dioxide CO2 21-32 Normal (applies to non-numer ic results) [facility] Anion Gap 5.0-16.0 Normal (applies to non-numeric resul ts) [facility] BUN 15 mg/dL 7-18 Normal (applies to non-numeric results) [facility] Creatinine,Serum 0.7-1.2 Normal (applies to non-numeric results) [facility] GFR >60 Normal (applies to non-numeric results) [facility] Glucose Level 115 mg/dL 60-99 Above high normal [facility] Reference range is only applicable when patient is fasting Note the following drug interference: Sulfasalazine Sulfapyridine Can see falsely depressed Can see falsely elevated result with up to 17% results with up to 11% decrease in measurement increase in measurement Recommend patients be collected for this test prior to administration of either drug. Calcium 8.5-10.1 Normal (applies to non-numeric resul ts) [facility] Bilirubin,Total 0.1-1.9 Normal (applies to non-numeric results) [facility] SGOT(AST) 31 U/L 15-37 Normal (applies to non-numeric resul ts) [facility] Note the following drug interference: Sulfasalazine Sulfapyridine Can see falsely depressed Can see falsely elevated result with up to 10% results with up to 10% decrease in measurement increase in measurement Recommend patients be collected for this test prior to administration of either drug. SGPT(ALT) 22 U/L 12-78 Normal (applies to non-numeric resul ts) [facility] Note the following drug interference: Sulfasalazine Sulfapyridine Can see falsely depressed Can see falsely elevated result with up to 29% results with up to 10% decrease in measurement increase in measurement Recommend patients be collected for this test prior to administration of either drug. Alkaline Phosphatase 56 U/L 38-126 Normal (applies to non-num bin results) [facility] can increase Alkaline Phosp le vels up to 2 times the normal adult value. Normal values for children and adolescents are 2 to 3 times the normal adult value. Total Protein 6.0-8.2 Normal (applies to non-numeric re sults) [facility] Albumin Level 3.4-5.0 Normal (applies to non-numeric re sults) [facility] ID Date Data Source [id number] 07/08/2020 11:30:00 AM EDT [facility] Name Value Range Interpretation Code Description Data Xuan rce(s) Supporting Document(s) White Blood Count 3.5-10.5 Normal (applies to non-numeri c results) [facility] Red Blood Count 3.90-5.00 Normal (applies to non-numeric results) [facility] Hemoglobin 12.0-15.5 Normal (applies to non-numeric resul ts) [facility] Hematocrit 34.9-44.5 Normal (applies to non-numeric resul ts) [facility] Mean Corpuscular Volume 81.2-95.1 Normal (applies to non- numeric results) [facility] Mean Corpuscular Hgb 25.6-32.2 Normal (applies to non-num bin results) [facility] Mean Corpuscular Hgb Conc 32.0-36.0 Normal (applies to no n-numeric results) [facility] Red Cell Distribution Width 11.9-15.5 Normal (appli es to non-numeric results) [facility] Platelet Count 205 x10 3/uL 150-450 Normal (applies to non-numeric results) [facility] Mean Platelet Volume 9.4-12.4 Normal (applies to non-num bin results) [facility] Neutrophils% (Auto) 31.0-71.0 Normal (applies to non-nume felix results) [facility] Lymphocytes% (Auto) 20.0-55.0 Normal (applies to non-nume felix results) [facility] Monocytes% (Auto) 4.0-12.0 Normal (applies to non-numeri c results) [facility] Eosinophils% (Auto) 1.0-8.0 Normal (applies to non-nume felix results) [facility] Basophils% (Auto) 0.0-2.0 Normal (applies to non-numeri c results) [facility] Immature Granulocytes% (Auto) 0.0-2.0 Normal (jj lies to non-numeric results) [facility] Neutrophils# (Auto) 1.50-6.20 Normal (applies to non-nume felix results) [facility] Lymphocytes# (Auto) 1.20-4.00 Normal (applies to non-nume felix results) [facility] Monocytes# (Auto) 0.00-0.90 Normal (applies to non-numeri c results) [facility] Eosinophils# (Auto) 0.00-0.50 Normal (applies to non-nume felix results) [facility] Basophils# (Auto) 0.00-0.20 Normal (applies to non-numeri c results) [facility] Immature Granulocytes# (Auto) 0.00-7.00 No rmal (applies to non-numeric results) [facility] ID Date Data Source [id number] 06/23/2020 10:39:00 AM EDT [facility] ([facility]) Name Value Range Interpretation Code Description Data Xuan rce(s) Supporting Document(s) Laboratory test finding (navigational concept) Laboratory test result [facility]) Procedure Vital Signs ID Date Data Source UNK Name Value Range Interpretation Code Description Data Source(s) Body mass index (BMI) [Ratio] 34.2 kg/m2 34.2 k g/m2 MEDENT ([facility] Body weight 184.00 [lb_av] 184.00 [lb_av] MEDEN T ([facility] Body height 61.5 [in_i] 61.5 [in_i] MEDENT ([facility] 5'1.50" Body temperature 97.0 [degF] 97.0 [degF] [facility] ([facility]) Diastolic blood pressure 82 mm[Hg] 82 mm[Hg] W1 ([facility]) Systolic blood pressure 124 mm[Hg] 124 mm[Hg] e CW1 ([facility]) Body mass index (BMI) [Ratio] 34.57 kg/m2 34.57 kg/m2 eCW1 ([facility]) Body height 61 [in_us] 61 [in_us] eCW1 ([facility]) Body weight Measured 183 [lb_av] 183 [lb_av] eC W1 ([facility]) Diastolic blood pressure 84 mm[Hg] 84 mm[Hg] eCW1 ([facility]) Systolic blood pressure 147 mm[Hg] 147 mm[Hg] e CW1 ([facility]) Body temperature 98.3 [degF] 98.3 [degF] eCW1 ( [facility]) Respiratory rate 20 /min 20 /min eCW1 ([facility]) Heart rate 98 /min 98 /min eCW1 ([facility]) Body mass index (BMI) [Ratio] 35.52 kg/m2 35.52 kg/m2 eCW1 ([facility]) Body height 61 [in_us] 61 [in_us] eCW1 ([facility]) Body weight Measured 188 [lb_av] 188 [lb_av] eC W1 ([facility]) Patient Treatment Plan of Care Planned Activity Planned Date Details Description Data Source (s) Sudafed 30 MG 11/29/2019 12:00:00 AM EST eCW1 ([facility]) Prednisone 20 MG Oral Tablet 11/29/2019 12:00:00 AM EST eCW1 ([facility]) Flonase 50 MCG/ACT 11/29/2019 12:00:00 AM EST eCW1 ([facility]) Albuterol Sulfate HFA 108 (90 Base) MCG/ACT 11/29/2019 12:00:00 AM EST eCW1 ([facility]) 12 HR dextromethorphan polistirex 6 MG/ML Extended Rel ease Suspension [Delsym] 11/29/2019 12:00:00 AM EST eCW1 ([facility])
[2020-11-08] MEDS ORDERED: EPINEPHrine INJ 1 MG/ML 1ML AMP XX ONE (12:00)
[2020-11-08] MEDS ORDERED: ROPIvacaine 0.5% 30ML INJECTION (J2795 PER 1MG) XX ONE (12:00)
[2020-11-08] MEDS ORDERED: dexameTHASONE 10MG/1ML VIAL PRES.FREE (J1100 PER 1MG) XX ONE (12:00)
[2020-11-08] MEDS ORDERED: TRANEXAMIC ACID 100 MG/ML 10ML VIAL As Ordered ONE (12:00)
[2020-11-08] MEDS ORDERED: ceFAZolin 1GM VIAL (J0690 PER 500MG) As Ordered ONE (12:01)
[2020-11-08] MEDS ORDERED: EPINEPHrine INJ 1 MG/ML 1ML AMP As Ordered ONE (12:01)
[2020-11-08] MEDS ORDERED: BUPIVACAINE LIPOSOME/PF 1.3% 20ML VIAL (13.3MG/ML)(EXPAREL)(C9290 PER1MG) As Ordered ONE (12:01)
[2020-11-08] MEDS ORDERED: BUPIVACAINE HCL 0.25% 10ML VIAL As Ordered ONE (12:01)
[2020-11-08] MEDS: fentaNYL 100 MCG/2 ML INJECTION (J3010) IV PRN ×2 (12:39→17:06)
[2020-11-08] MEDS ORDERED: ePHEDrine SULFATE 25 MG/5 ML(5MG/ML) SYRINGE As Ordered ONE (15:01)
[2020-11-08] MEDS ORDERED: PHENYLephrine 500MCG 5ML (100MCG/ML) SYRINGE As Ordered ONE (15:01)
--- NOTE | 2020-11-08 15:46 | REP ---
INDICATION: POST OP IN PACU COMPARISON: None. TECHNIQUE: AP and lateral right knee. FINDINGS: Total knee prosthesis is placed with femoral and tibial components in good position. Osseous structures are intact and well aligned. Metallic skin isacc are seen anteriorly. IMPRESSION: Total right knee arthroplasty appears to be in good position. <Electronically signed by Cal Lovell > 11/08/20 [id number]
[2020-11-08] MEDS ORDERED: ACETAMINOPHEN TAB 650MG DOSE (2X325MG) PO PRN (16:00)
[2020-11-08] MEDS ORDERED: MORPHINE 4 MG/ML 1ML VIAL/SYRINGE (J2270) IV PRN (16:00)
[2020-11-08] MEDS ORDERED: LR 1,000 ML IV SCH (16:00)
[2020-11-08] MEDS ORDERED: oxyCODONE 5MG TAB PO PRN (16:00)
[2020-11-08] MEDS ORDERED: MORPHINE 2 MG/ML 1ML VIAL (J2270) IV PRN (16:00)
[2020-11-08] MEDS ORDERED: PERCOCET 5MG/325MG TAB PO PRN ×4 (16:00→18:00)
[2020-11-08] MEDS ORDERED: fentaNYL 100 MCG/2 ML INJECTION (J3010) IV PRN (16:00)
[2020-11-08] MEDS ORDERED: ONDANSETRON 4MG/2ML VIAL IV PRN ×2 (16:00)
--- NOTE | 2020-11-08 16:38 | RO ---
OPERATIVE NOTE DATE OF OPERATION: 11/08/2020 PREOPERATIVE DIAGNOSIS: Right knee degenerative arthritis. POSTOPERATIVE DIAGNOSIS: Right knee degenerative arthritis. PROCEDURES: Right total knee arthroplasty using a size 5 cruciate-retaining Attune femoral component, with a size 4 tibial tray, with a 7-mm rotating platform, and polyethylene insert, and a 35-mm polyethylene button. All components were cemented. Prosthesis was made by [employer]. It was an Attune Knee. SURGEON: Reyes Alegria M.D. ANESTHESIOLOGIST/PHYSICIAN: Barb Fuller PA-C ANESTHESIA: Spinal with right femoral nerve block. COMPLICATIONS: None. SPECIMEN: Joint surface. ESTIMATED BLOOD LOSS: 20 mL. PROCEDURE: Antibiotics were given intravenously preoperatively. A successful right femoral nerve block and then a spinal anesthetic were induced. Tourniquet was placed on right upper thigh and not inflated. The right lower extremity was carefully prepped in the usual fashion. The leg was elevated, and after an appropriate time out, the tourniquet was inflated. A longitudinal incision was made for a medial parapatellar approach to the knee. The Bovie cautery was used to coagulate crossing vessels. Subperiosteal dissection around the proximal, medial, and lateral tibial plateaus was performed. The patella was flexed and the ACL was debrided. Then, the drill was placed down the center of the femoral canal, followed by the distal femoral cutting jig set at 9-mm resection level, at 5 valgus for a right knee. The block was pinned into position, distal femoral cut was performed. AP sizing jig was measured for a size #5 prosthesis. Then, 3 of external rotation for a right knee were dialed in, the pins were placed, followed by the 4-in-one block. Anterior and posterior chamfer cuts were then performed taking great care to protect the surrounding soft tissues. We then placed a sulcus osteotomy jig and then performed the sulcus osteotomy. We exposed the proximal tibia and used the extramedullary stanislav to confirm and estimate being parallel to the mechanical axis of the tibia, referencing off of the medial tibial condyle at 4 mm of resection level. The block was pinned into position. Secondary check with the extramedullary stanislav confirmed that we appeared to be parallel to the mechanical axis, thus a proximal tibial osteotomy was performed. The spacer block at 7 mm was very symmetric and had good stability to varus and valgus stress testing, both in flexion and in extension. Prior to placing the spacer block, the laminar retail stock clerk was first placed medially and we performed a completion lateral meniscectomy, debriding the posterolateral osteophytes. We then placed the laminar retail stock clerk laterally and performed a completion medial meniscectomy, debriding the posteromedial osteophytes. We then exposed the proximal tibia, sized for a #4 tibial tray, which was pinned into position following the reamer and broach. Then, the trial placement of the trial femoral component was placed, brought the knee into extension, everted the patella, performed a patellar osteotomy, sized for a 35 button. Lug hole was drilled and trial placed. The patellofemoral tracking was anatomic. We thus drilled the lug holes for the femur at this point. The knee had good stability in range of motion. We then removed all of the trial components and placed Exparel in the subperiosteal tissues around the distal femur and the proximal tibia. Then, Ms. Barb Fuller mixed the cement on the back table as I prepared the bony surfaces for cementing with a copious amount of pulsatile lavage irrigant solution as we did several times throughout the surgery. Barbnata Fuller was also critical for the success of this difficult procedure by helping with appropriate soft tissue retraction, helped manipulate the knee, helped to close the wound, helped to prepare the patient, amongst many other tasks to allow me to perform the operation smoothly, efficiently, and safely. Once all of the bony surfaces were thoroughly dry, we cemented the tibial tray, removed excess cement, placed the polyethylene, cemented the femoral component, and removed excess cement. We brought the knee into extension and then cemented the patella button and held it with a clamp. We removed all excess cement and held this in position until the cement hardened. As we were awaiting this, we copiously irrigated out the knee joint again, placed tranexamic acid into the depths of the knee, and then closed the apex of the arthrotomy with two #1 PDS sutures. The medial parapatellar area was closed with a medial parapatellar arthrotomy suture and then we closed the arthrotomy with a double-armed #1 running Stratafix and then the tourniquet was released. We irrigated between layers, closed the deep subdermal tissues with interrupted 2-0 PDS suture. The skin was closed with isacc and covered by an Optifoam and then a dry sterile bulky dressing. The patient was transferred to the recovery room in stable condition. There were no intraoperative complications. [facility]
--- NOTE | 2020-11-08 20:09 | CR.PDOC ---
General Date of Consultation: Nov 08, 2020 Referring Provider: Wilian Alegria Attending Physician: ANIVAL TORREZ DO Consultation REASON FOR CONSULTATION/CHIEF COMPLAINT: Medical comanagement, right total knee arthroplasty HISTORY OF PRESENT ILLNESS: Mrs. Denton is a 74-year-old female with hypertension and osteoarthritis who is here for an elective right total knee arthroplasty for osteoarthritis of the right knee. from the operation on 11/08/2020. She was seen this evening. Tonight she is feeling well. Denied any fever or chills, lightheadedness or dizziness, chest pain, abdominal pain, diarrhea, or dysuria. She was a little concerned about her blood pressure as it was elevated in the morning. Otherwise she is feeling well without complaints. ALLERGIES: Please see below. HOME MEDICATIONS: Please see below. PAST MEDICAL HISTORY: 1. Symptomatic osteoarthritis of the right knee. 2. Hypertension. 3. Anxiety. 4. Glaucoma. 5. Hearing loss. PAST SURGICAL HISTORY: 1. Appendectomy. 2. D&C. 3. Right eye surgery. 4. Tubal ligation. 5. Knee replacement on the left side. FAMILY HISTORY: Father: at the age of 78. History of stroke and high blood pressure Mother: at the age of 92. History of diabetes mellitus SOCIAL HISTORY: Tobacco use: Former smoker, quit 35 years ago ETOH: Drinks on special occasions and holidays Illicit drug use: Denies REVIEW OF SYSTEMS: CONSTITUTIONAL: Denies any fever or chills. Denies lightheadedness or dizziness. ENT: Denies sore throat. RESPIRATORY: Denies shortness of breath. Denies cough. CARDIOVASCULAR: Denies chest pain. Denies palpitations. GASTROINTESTINAL: Denies abdominal pain. Denies diarrhea. GENITOURINARY: Denies dysuria. CUTANEOUS: Denies rashes. MUSCULOSKELETAL: Denies muscle weakness. NEUROLOGICAL: Denies neuropathy. Denies paresthesias. PSYCHOLOGICAL: Denies anxiety. Denies depression. PHYSICAL EXAMINATION: VITAL SIGNS: Please see below. GENERAL: Comfortable, in no apparent distress. HEENT: Head normocephalic/atraumatic, EOMI, sclera clear. NECK: Supple, no JVD. RESPIRATORY: Lungs clear to auscultation bilaterally, no rales, wheeze or rhonchi. CARDIOVASCULAR: Regular rate and rhythm. ABDOMEN: Soft, nontender, no guarding or rebound tenderness. Normal bowel sounds. MUSCLE SKELETAL: Muscle strength 5/5 in arms. NEUROLOGICAL: CN 312 grossly intact, no focal deficits noted. PSYCHOLOGICAL: Normal mood and affect LABORATORY DATA: Please see below. ASSESSMENT/PLAN: 1. Right knee osteoarthritis status post total right knee arthroplasty Performed by Dr. Monsalve on 11/08/2020 Surgery went well Disposition per orthopedic surgery 2. Hypertension We will restart her metoprolol succinate. 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 DVT prophylaxis Per orthopedic surgery Thank you for consulting us. We will continue following. Vital Signs/I&O Vital Signs Date Time Temp Pulse Resp B/P (MAP) Pulse Ox O2 Delivery O2 Flow Rate FiO2 11/08/20 18:30 96.8 84 18 155/90 (111) 98 Room Air 11/08/20 13:15 2 Allergies Coded Allergies: Contrast Media (Unverified Allergy, Intermediate, hives, 11/08/20) codeine (Verified Adverse Reaction, Mild, SEVERE ABDOMINAL PAINS, 11/08/20) Home Medications Scheduled Acetaminophen (Tylenol Arthritis) 650 Mg Tablet.er, 1,300 MG PO BID, (Reported) C,E,Zinc,Copper 24/Om3/Lut/Brandyn (Ocuvite Adult 50 Plus Softgel) 1 Each Capsule, 1 CAP PO DAILY, (Reported) Citalopram Hydrobromide (Citalopram HBr) 10 Mg Tablet, 10 MG PO DAILY, (Rep orted) Metoprolol Succinate (Metoprolol Succinate) 50 Mg Tab.er.24h, 50 MG PO QHS, (Reported) Multivitamin (Multivitamins) 1 Each Capsule, 2 CAP PO QHS, (Reported) Naproxen (Naproxen) 250 Mg Tablet, 250 MG PO BID, (Reported) Staples-3/Dha/Epa/Fish Oil (Fish Oil 1,200 mg Softgel) 1 Each Capsule., 1 CAP PO DAILY, (Reported) [hemp oil] , PO DAILY, (Reported) ANIVAL TORREZ DO Nov 08, 2020 20:09
[2020-11-08] MEDS ORDERED: METOPROLOL SUCC (TopROL XL) 50MG **XL** TAB PO SCH (21:00)
[2020-11-08] MEDS: ASPIRIN 81 MG ENTERIC TAB PO SCH (22:00)
[2020-11-08] MEDS: ceFAZolin SOD 2 GM in IV 1 EA IV SCH (22:00)
[2020-11-09 04:30] VITALS: BP 120/62
[2020-11-09] MEDS: ceFAZolin SOD 2 GM in IV 1 EA IV SCH (05:08)
[2020-11-09] MEDS ORDERED: ECOT81TA5 PO (06:01)
[2020-11-09] MEDS ORDERED: PERC5TAB12 PO (06:01)
[2020-11-09 06:44] LABS: HEMATOCRIT 29.4 % (36.0-47.0); HEMOGLOBIN 9.9 g/dl (12.0-15.5); MEAN CORPUSCULAR HEMOGLOBIN 30.7 pg (27.0-33.0); MEAN CORPUSCULAR HGB CONC 33.7 g/dl (32.0-36.5); PLATELET COUNT, AUTOMATED 164 10^3/uL (150-450); RED BLOOD COUNT 3.23 10^6/uL (4.00-5.40); WHITE BLOOD COUNT 12.2 10^3/uL (4.0-10.0)
[2020-11-09 07:10] LABS: ALBUMIN 3.3 GM/DL (3.2-5.2); ALT/SGPT 18 U/L (12-78); BILIRUBIN,TOTAL 0.2 MG/DL (0.2-1.0); BLOOD UREA NITROGEN 11 MG/DL (7-18); CALCIUM LEVEL 8.5 MG/DL (8.8-10.2); CARBON DIOXIDE LEVEL 26 MEQ/L (21-32); CHLORIDE LEVEL 106 MEQ/L (98-107); CREATININE FOR GFR 0.92 MG/DL (0.55-1.30); GLOMERULAR FILTRATION RATE > 60.0 (>39); GLUCOSE, FASTING 145 MG/DL (70-100); POTASSIUM SERUM 3.8 MEQ/L (3.5-5.1); SODIUM LEVEL 140 MEQ/L (136-145)
[2020-11-09] MEDS: ASPIRIN 81 MG ENTERIC TAB PO SCH (08:52)
[2020-11-09] MEDS ORDERED: OCUVITE 1 TAB PO SCH (09:00)
[2020-11-09] MEDS ORDERED: MULTIVITAMINS/MINERALS THERAP 1 TAB PO SCH (09:00)
[2020-11-09] MEDS ORDERED: MOM 30ML SUSPENSION UDC PO SCH (09:00)
[2020-11-09] MEDS ORDERED: MIRALAX *UNIT DOSE* 17GM PACKET PO SCH (09:00)
[2020-11-09 10:00] VITALS: BP_SYST 130; BP_SYST 160; BP_DIAS 59; BP_DIAS 80
--- NOTE | 2020-11-09 11:09 | IPNPDOC ---
Date Seen The patient was seen on 11/09/20. Progress Note SUBJECTIVE: Patient complains a 3 out of 10 pain in the right knee at the back of the knee which is tolerable, and better with alternating ice And hot compresses Patient passed HSE and may be discharged home today. No other issues overnight OBJECTIVE PHYSICAL EXAMINATION: VITAL SIGNS: Please see below. GENERAL: No distress. Awake, alert, oriented 3 HEENT: No JVD, no thyromegaly, no carotid bruit CARDIOVASCULAR: S1, S2, regular rate and rhythm RESPIRATORY: Clear to auscultation bilaterally. No wheezing, rales or rhonchi. ABDOMINAL: Obese, soft, nontender, nondistended, positive bowel tones. Quadrants EXTREMITIES: Postop right knee LABORATORY DATA, IMAGING STUDIES, MICROBIOLOGY: Please see below. ASSESSMENT AND PLAN: 74-year-old female with right osteoarthritis, hypertension, anxiety, glaucoma, admitted on 11/08/2019 for elective right total knee arthroplasty without complications. Right total knee arthropathy arthritis, status post right hemiarthroplasty. Postoperative management including DVT prophylaxis, pain control, bowel regimen per orthopedic surgery. Hypertension, controlled -on metoprolol 50 mg daily at bedtime Disposition: Discharge home today VS, I&O, 24H, [place] Vital Signs/I&O Vital Signs Date Time Temp Pulse Resp B/P (MAP) Pulse Ox O2 Delivery O2 Flow Rate FiO2 11/09/20 10:00 Room Air 11/08/20 13:15 2 I&O- Last 24 Hours up to 6 AM 11/09/20 06:00 Intake Total 1775 ml Output Total 620 ml Balance 1155 ml Laboratory Data 24H LABS Laboratory Tests 2 11/09/20 06:28: Nucleated Red Blood Cells % (auto) 0.0, Anion Gap 8, Glomerular Filtration Rate > 60.0, Calcium Level 8.5L, Total Bilirubin 0.2, Aspartate Amino Transf (AST/SGOT) 15, Alanine Aminotransferase (ALT/SGPT) 18, Alkaline Phosphatase 52, Total Protein 6.0L, Albumin 3.3, Albumin/Globulin Ratio 1.2 CBC/BMP Laboratory Tests 11/09/20 06:28 CLIVE KHAN MD Nov 09, 2020 11:09
== END 2020-11-09 12:30 | disposition home or self-care (01) | DRG 470 ==
LOC: M OR 10:00 → M MS5PR 16:50
PROVIDERS: ADMIT Orthopaedic Surgery; ATTEND Orthopaedic Surgery
PROC: 0SRC0J9 Replacement of Right Knee Joint with Synthetic Substitute, Cemented, Open Approach (ICD-10-PCS; principal; 2020-11-08 14:30)
DX: M17.11 Unilateral primary osteoarthritis, right knee (principal); I10 Essential (primary) hypertension; F41.9 Anxiety disorder, unspecified; R26.89 Other abnormalities of gait and mobility; H40.9 Unspecified glaucoma; H91.90 Unspecified hearing loss, unspecified ear; Z90.49 Acquired absence of other specified parts of digestive tract; Z79.899 Other long term (current) drug therapy; Z96.652 Presence of left artificial knee joint; Z87.891 Personal history of nicotine dependence

== ENCOUNTER → 2023-01-10 | Outpatient (CLI) | payer MEDICARE ==
[~2023-01-10] MED LIST changes: -ACETAMINOPHEN 500 MG TAB PO ONE; -CITA10TA5 PO; +CITA10TA7 PO; +ECOT81TA5 PO; -LIDOCAINE 2% 100MG/5ML SDV (FOR ANES.) As Ordered ONE; -LR 1,000 ML IV ONE; -MIDAZOLAM INJ 2MG/2ML VIAL (J2250 PER 1MG) As Ordered ONE; -MIDAZOLAM INJ 2MG/2ML VIAL (J2250 PER 1MG) IV PRN; +NAPR-849 PO; -NAPR250T4 PO; -ONDANSETRON 4MG/2ML VIAL As Ordered ONE; -ceFAZolin SOD 2 GM in IV 1 EA IV ONE; -fentaNYL 100 MCG/2 ML INJECTION (J3010) As Ordered ONE; -propofoL 200 MG/20 ML VIAL As Ordered ONE
== END ==
LOC: M RAD 11:20
PROVIDERS: ATTEND Physician Assistant
DX: Z96.651 Presence of right artificial knee joint (principal)
CPT/HCPCS: 78315; A9503

== ENCOUNTER → 2023-07-19 | Outpatient (CLI) | payer MEDICARE | LOC: M WHC 13:00 | PROVIDERS: ATTEND Nurse Practitioner Family | DX: Z12.31 Encounter for screening mammogram for malignant neoplasm of breast (principal) ==